=== PATIENT | male | born 1950 | race Caucasian/White ===

== ENCOUNTER 2020-02-25 09:03 | Inpatient (IN) | payer OTHER, MEDICAID, SELFPAY ==
[~2020-02-25] VITALS: Ht 172.7 cm; Wt 72.6 kg
[~2020-02-25 09:03] MED LIST: CEPH250C16 PO; GABA100C PO; HYDR-5092 PO; IV Rocephin IV
[2020-02-25 09:32] VITALS: BP 144/104
[2020-02-25] MEDS ORDERED: ACETAMINOPHEN EXTRA STRENGTH 500 MG TAB PO ONE (09:55)
[2020-02-25] MEDS ORDERED: ACETAMINOPHEN EXTRA STRENGTH 500 MG TAB ONE (09:59)
[2020-02-25] MEDS ORDERED: FURO-572 PO (10:03)
[2020-02-25] MEDS ORDERED: MELA3TER PO (10:03)
[2020-02-25] MEDS ORDERED: MULT-2171 PO (10:03)
[2020-02-25 10:30] LABS: BASOPHILS % (AUTO) 0.5 % (0.0-2.0); HEMATOCRIT 40.9 % (36-52); HEMOGLOBIN 13.1 g/dL (12.0-18.0); LYMPHOCYTES # (AUTO) 0.3 K/uL (2.0-11.5); LYMPHOCYTES % (AUTO) 6.2 % (20.5-51.1); MEAN CORPUSCULAR HEMOGLOBIN 31 pg (27-31); MEAN CORPUSCULAR HGB CONC 32 g/dL (33-37); MEAN CORPUSCULAR VOLUME 95.8 fL (80-94); MONOCYTES # (AUTO) 0.4 K/uL (0.8-1.0); MONOCYTES % (AUTO) 8.3 % (1.7-9.3); NEUTROPHILS # (AUTO) 4.6 K/uL (1.8-7.7); PLATELET COUNT (AUTO) 201 K/uL (140-450); RED BLOOD CELL COUNT(AUTO) 4.27 MIL/uL (4.20-6.10); WHITE BLOOD COUNT (AUTO) 5.4 K/uL (4.8-10.8)
[2020-02-25 10:40] LABS: ALBUMIN 2.9 g/dL (3.4-5.0); ANION GAP 9.4 (8-16); ASPARTATE AMINOTRANSFERASE 44 U/L (15-37); CARBON DIOXIDE 36.1 mmol/L (21-32); CHLORIDE 113 mmol/L (98-107); CREATININE 1.2 mg/dL (0.6-1.3); GLUCOSE 103 mg/dL (74-106); POTASSIUM 4.5 mmol/L (3.5-5.1); SODIUM SERUM 154 mmol/L (136-145); TOTAL BILIRUBIN 0.4 mg/dL (0.0-1.0); UREA NITROGEN, BLOOD 26 mg/dL (7-18)
[2020-02-25] MEDS ORDERED: NACL 0.9% 1,000 ML IV ONE (11:00)
[2020-02-25] MEDS ORDERED: cefTRIAXone 1,000 MG VIAL ONE (11:03)
[2020-02-25] MEDS ORDERED: guaiFENesin DM 200/20 MG-10 ML 10 ML UDC PO PRN (14:25)
[2020-02-25] MEDS ORDERED: DOCUSATE SODIUM 100 MG GELCAP PO PRN (14:25)
[2020-02-25] MEDS ORDERED: ONDANSETRON 4 MG/2 ML VIAL IM/IVP PRN (14:25)
[2020-02-25] MEDS ORDERED: ALBUTEROL HFA MDI 90 MCG/ACTUATION 8 GM INH PRN (14:30)
[2020-02-25] MEDS ORDERED: remdesivir CLINICAL MONITORING 1 EA MISC MC PRN (15:00)
[2020-02-25] MEDS: NACL 0.9% 1,000 ML IV SCH (15:20)
[2020-02-25 15:36] LABS: PROTHROMBIN TIME 10.6 secs (10.8-13.4)
[2020-02-25 15:56] LABS: CHOL/HDL RATIO 4.4 (1-4.5); FREE T4 (FREE THYROXINE) 0.88 ng/dL (0.76-1.46); MAGNESIUM 2.5 mg/dL (1.8-2.4); PHOSPHORUS 4.4 mg/dL (2.5-4.9); THYROID STIMULATING HORMONE 0.9 uIU/mL (0.34-3.74)
[2020-02-25] MEDS ORDERED: REMDESIVIR (EUA) 200 MG in NACL 0.9% 100 ML IV SCH (16:00)
[2020-02-25] MEDS: FUROSEMIDE 40 MG/4 ML VIAL IVP SCH (17:01)
[2020-02-25] MEDS: ATORVASTATIN 20 MG TAB PO SCH (17:03)
[2020-02-25] MEDS: HYDROcodone/APAP 7.5/325 MG 1 TAB PO PRN (17:19)
[2020-02-25 17:44] LABS: APPEARANCE,URINE CLEAR (CLEAR); BILIRUBIN,URINE NEGATIVE (NEGATIVE); BLOOD, URINE NEGATIVE (NEGATIVE); COLOR,URINE YELLOW (YELLOW); LEUKOCYTE ESTERASE ,URINE NEGATIVE (NEGATIVE); NITRITE, URINE NEGATIVE (NEGATIVE); UGLUCOSE NEGATIVE (NEGATIVE)
[2020-02-25 17:54] LABS: BARBITURATE, URINE NEGATIVE ng/ml (NEG <=200); BENZODIAZEPINE, URINE NEGATIVE ng/mL (NEG <=200); CANNABINOID, URINE NEGATIVE ng/mL (NEG <=50); COCAINE, URINE NEGATIVE ng/mL (NEG <=300); PHENCYCLIDINE SCREEN,URINE NEGATIVE ng/mL (NEG <=25)
[2020-02-25 17:55] LABS: OPIATE, URINE POSITIVE ng/mL (NEG <=2000)
[2020-02-25] MEDS: METOPROLOL 25 MG TAB PO SCH (22:02)
[2020-02-25] MEDS: ZOLPIDEM 5 MG TAB PO PRN (23:25)
[2020-02-26] MEDS: NACL 0.9% 1,000 ML IV SCH ×2 (03:09→12:02)
[2020-02-26] MEDS ORDERED: hydrALAZINE 20 MG/ML VIAL IVP SCH (03:50)
[2020-02-26] MEDS ORDERED: hydrALAZINE 20 MG/ML VIAL ONE (03:51)
[2020-02-26] MEDS: ACETAMINOPHEN 325 MG TAB PO PRN (07:59)
[2020-02-26] MEDS: FUROSEMIDE 40 MG/4 ML VIAL IVP SCH ×2 (08:13→17:45)
[2020-02-26] MEDS: ASCORBIC ACID 500 MG TAB PO SCH (08:14)
[2020-02-26] MEDS: ZINC SULF 220 MG CAP PO SCH (08:14)
[2020-02-26] MEDS: METOPROLOL 25 MG TAB PO SCH ×2 (08:15→20:48)
[2020-02-26] MEDS: PANTOPRAZOLE 40 MG TABEC PO SCH (08:15)
[2020-02-26] MEDS: lisinopriL 20 MG TAB PO SCH (08:15)
[2020-02-26] MEDS: FUROSEMIDE 20 MG TAB PO SCH (08:16)
[2020-02-26 08:27] LABS: BASOPHILS % (AUTO) 0.3 % (0.0-2.0); HEMATOCRIT 43.1 % (36-52); HEMOGLOBIN 13.9 g/dL (12.0-18.0); LYMPHOCYTES # (AUTO) 0.2 K/uL (2.0-11.5); LYMPHOCYTES % (AUTO) 3.6 % (20.5-51.1); MEAN CORPUSCULAR HEMOGLOBIN 30 pg (27-31); MEAN CORPUSCULAR HGB CONC 32 g/dL (33-37); MEAN CORPUSCULAR VOLUME 94.3 fL (80-94); MONOCYTES # (AUTO) 0.3 K/uL (0.8-1.0); MONOCYTES % (AUTO) 4.6 % (1.7-9.3); NEUTROPHILS # (AUTO) 5.6 K/uL (1.8-7.7); NEUTROPHILS % (AUTO) 91.5 % (42.2-75.2); PLATELET COUNT (AUTO) 196 K/uL (140-450); RED BLOOD CELL COUNT(AUTO) 4.57 MIL/uL (4.20-6.10); RED CELL DISTRIBUTION WIDTH 16.8 % (11.6-13.7); WHITE BLOOD COUNT (AUTO) 6.1 K/uL (4.8-10.8)
[2020-02-26] MEDS ORDERED: AZITHROMYCIN 250 MG TAB PO SCH (09:00)
[2020-02-26] MEDS ORDERED: lisinopriL 20 MG TAB PO SCH (09:00)
[2020-02-26] MEDS: COMMUNICATION ORDER MC SCH (09:05)
[2020-02-26 09:22] LABS: ALBUMIN 2.8 g/dL (3.4-5.0); ANION GAP 14.8 (8-16); ASPARTATE AMINOTRANSFERASE 53 U/L (15-37); CARBON DIOXIDE 31.1 mmol/L (21-32); CHLORIDE 103 mmol/L (98-107); CREATININE 1.1 mg/dL (0.6-1.3); GLUCOSE 120 mg/dL (74-106); POTASSIUM 3.9 mmol/L (3.5-5.1); SODIUM SERUM 145 mmol/L (136-145); TOTAL BILIRUBIN 0.4 mg/dL (0.0-1.0); UREA NITROGEN, BLOOD 27 mg/dL (7-18)
[2020-02-26 11:03] LABS: ALBUMIN 2.9 g/dL (3.4-5.0); BILIRUBIN,DIRECT 0.1 mg/dL (0.0-0.3); TOTAL BILIRUBIN 0.4 mg/dL (0.0-1.0)
[2020-02-26] MEDS: REMDESIVIR (EUA) 100 MG in NACL 0.9% 100 ML IV SCH (12:20)
[2020-02-26] MEDS: ATORVASTATIN 20 MG TAB PO SCH (17:46)
[2020-02-26] MEDS ORDERED: PIPERACILLIN/TAZOBACTAM 3.375 GM VIAL IV ONE (18:02)
[2020-02-26] MEDS: PIPERACILLIN/TAZOBACTAM 3.375 GM in DEXTROSE 5% 50 ML IV SCH (18:05)
[2020-02-26 18:52] VITALS: BP 140/90
[2020-02-26 20:00] VITALS: BP 115/68
[2020-02-27] VITALS: BP 112/80
[2020-02-27] MEDS ORDERED: PIPERACILLIN/TAZOBACTAM 3.375 GM VIAL IV ONE ×2 (00:22→06:41)
[2020-02-27] MEDS: PIPERACILLIN/TAZOBACTAM 3.375 GM in DEXTROSE 5% 50 ML IV SCH ×5 (00:25→23:43)
[2020-02-27 04:00] VITALS: BP 124/88
[2020-02-27] MEDS: NACL 0.9% 1,000 ML IV SCH ×4 (06:35→23:43)
[2020-02-27 08:00] VITALS: BP 122/90
[2020-02-27 08:19] LABS: BASOPHILS # (AUTO) 0.1 K/uL (0.00-0.22); HEMATOCRIT 43.7 % (36-52); HEMOGLOBIN 14.1 g/dL (12.0-18.0); LYMPHOCYTES # (AUTO) 0.3 K/uL (2.0-11.5); MEAN CORPUSCULAR HEMOGLOBIN 30 pg (27-31); MEAN CORPUSCULAR HGB CONC 32 g/dL (33-37); MONOCYTES # (AUTO) 0.5 K/uL (0.8-1.0); NEUTROPHILS # (AUTO) 4.8 K/uL (1.8-7.7); PLATELET COUNT (AUTO) 192 K/uL (140-450); RED BLOOD CELL COUNT(AUTO) 4.65 MIL/uL (4.20-6.10); RED CELL DISTRIBUTION WIDTH 16.4 % (11.6-13.7); WHITE BLOOD COUNT (AUTO) 5.7 K/uL (4.8-10.8)
[2020-02-27] MEDS: PANTOPRAZOLE 40 MG TABEC PO SCH (09:00)
[2020-02-27] MEDS: ASCORBIC ACID 500 MG TAB PO SCH (09:01)
[2020-02-27] MEDS: METOPROLOL 25 MG TAB PO SCH ×2 (09:01→21:04)
[2020-02-27] MEDS: ZINC SULF 220 MG CAP PO SCH (09:01)
[2020-02-27] MEDS: lisinopriL 20 MG TAB PO SCH (09:02)
[2020-02-27] MEDS: FUROSEMIDE 20 MG TAB PO SCH (09:02)
[2020-02-27] MEDS: FUROSEMIDE 40 MG/4 ML VIAL IVP SCH ×2 (09:02→16:55)
[2020-02-27 09:19] LABS: ALBUMIN 2.4 g/dL (3.4-5.0); ANION GAP 11.5 (8-16); ASPARTATE AMINOTRANSFERASE 40 U/L (15-37); CARBON DIOXIDE 35.6 mmol/L (21-32); CHLORIDE 105 mmol/L (98-107); CREATININE 1.2 mg/dL (0.6-1.3); GLUCOSE 115 mg/dL (74-106); POTASSIUM 3.1 mmol/L (3.5-5.1); SODIUM SERUM 149 mmol/L (136-145); TOTAL BILIRUBIN 0.5 mg/dL (0.0-1.0); UREA NITROGEN, BLOOD 29 mg/dL (7-18)
[2020-02-27 09:22] LABS: ALBUMIN 2.4 g/dL (3.4-5.0); BILIRUBIN,DIRECT 0.2 mg/dL (0.0-0.3); TOTAL BILIRUBIN 0.5 mg/dL (0.0-1.0)
[2020-02-27] MEDS: COMMUNICATION ORDER MC SCH (09:28)
[2020-02-27] MEDS: HYDROcodone/APAP 7.5/325 MG 1 TAB PO PRN ×2 (11:31→21:04)
[2020-02-27] MEDS: REMDESIVIR (EUA) 100 MG in NACL 0.9% 100 ML IV SCH (11:32)
[2020-02-27 12:00] VITALS: BP 120/88
[2020-02-27] MEDS: POTASSIUM CHLORIDE 10 MEQ TABER PO PRN (15:06)
[2020-02-27 16:00] VITALS: BP 133/93
[2020-02-27] MEDS: ATORVASTATIN 20 MG TAB PO SCH (16:55)
[2020-02-27 20:00] VITALS: BP 115/89
[2020-02-28] VITALS: BP 136/94
[2020-02-28 04:00] VITALS: BP 143/97
[2020-02-28] MEDS: PIPERACILLIN/TAZOBACTAM 3.375 GM in DEXTROSE 5% 50 ML IV SCH ×4 (05:43→23:38)
[2020-02-28 08:00] VITALS: BP 139/98
[2020-02-28 08:36] LABS: BASOPHILS % (AUTO) 0.1 % (0.0-2.0); EOSINOPHILS % (AUTO) 0.1 % (0.0-4.0); HEMATOCRIT 41.3 % (36-52); HEMOGLOBIN 13.4 g/dL (12.0-18.0); LYMPHOCYTES # (AUTO) 0.5 K/uL (2.0-11.5); LYMPHOCYTES % (AUTO) 9.5 % (20.5-51.1); MEAN CORPUSCULAR HEMOGLOBIN 30 pg (27-31); MEAN CORPUSCULAR HGB CONC 32 g/dL (33-37); MEAN CORPUSCULAR VOLUME 93.6 fL (80-94); MONOCYTES # (AUTO) 0.4 K/uL (0.8-1.0); NEUTROPHILS # (AUTO) 4.4 K/uL (1.8-7.7); NEUTROPHILS % (AUTO) 82.3 % (42.2-75.2); PLATELET COUNT (AUTO) 182 K/uL (140-450); RED BLOOD CELL COUNT(AUTO) 4.41 MIL/uL (4.20-6.10); RED CELL DISTRIBUTION WIDTH 16.4 % (11.6-13.7); WHITE BLOOD COUNT (AUTO) 5.4 K/uL (4.8-10.8)
[2020-02-28 08:55] LABS: ALBUMIN 2.4 g/dL (3.4-5.0); ANION GAP 8.3 (8-16); ASPARTATE AMINOTRANSFERASE 33 U/L (15-37); CARBON DIOXIDE 37.6 mmol/L (21-32); CHLORIDE 104 mmol/L (98-107); CREATININE 1.2 mg/dL (0.6-1.3); GLUCOSE 104 mg/dL (74-106); SODIUM SERUM 147 mmol/L (136-145); TOTAL BILIRUBIN 0.5 mg/dL (0.0-1.0); UREA NITROGEN, BLOOD 25 mg/dL (7-18)
[2020-02-28] MEDS: COMMUNICATION ORDER MC SCH (09:00)
[2020-02-28 09:01] LABS: POTASSIUM 2.9 mmol/L (3.5-5.1)
[2020-02-28] MEDS: ASCORBIC ACID 500 MG TAB PO SCH (10:26)
[2020-02-28] MEDS: PANTOPRAZOLE 40 MG TABEC PO SCH (10:27)
[2020-02-28] MEDS: POTASSIUM CHLORIDE 10 MEQ TABER PO PRN (10:27)
[2020-02-28] MEDS: lisinopriL 20 MG TAB PO SCH (10:28)
[2020-02-28] MEDS: ZINC SULF 220 MG CAP PO SCH (10:28)
[2020-02-28] MEDS: METOPROLOL 25 MG TAB PO SCH ×2 (10:29→21:32)
[2020-02-28] MEDS: FUROSEMIDE 40 MG/4 ML VIAL IVP SCH ×2 (10:29→17:52)
[2020-02-28] MEDS: FUROSEMIDE 20 MG TAB PO SCH (10:29)
[2020-02-28 12:00] VITALS: BP 122/93
[2020-02-28] MEDS: NACL 0.9% 1,000 ML IV SCH (13:04)
[2020-02-28] MEDS: REMDESIVIR (EUA) 100 MG in NACL 0.9% 100 ML IV SCH (13:52)
[2020-02-28 16:00] VITALS: BP 115/85
[2020-02-28] MEDS: ATORVASTATIN 20 MG TAB PO SCH (17:48)
[2020-02-28 20:00] VITALS: BP 136/64
[2020-02-29] VITALS: BP 130/99
[2020-02-29] MEDS: NACL 0.9% 1,000 ML IV SCH ×3 (01:22→15:40)
[2020-02-29] MEDS: HYDROcodone/APAP 7.5/325 MG 1 TAB PO PRN ×2 (01:30→21:39)
[2020-02-29 04:00] VITALS: BP 136/91
[2020-02-29] MEDS: PIPERACILLIN/TAZOBACTAM 3.375 GM in DEXTROSE 5% 50 ML IV SCH ×3 (06:09→17:57)
[2020-02-29 08:00] VITALS: BP 148/96
[2020-02-29 08:35] LABS: BASOPHILS % (AUTO) 0.1 % (0.0-2.0); HEMATOCRIT 42.7 % (36-52); LYMPHOCYTES # (AUTO) 0.6 K/uL (2.0-11.5); LYMPHOCYTES % (AUTO) 13.3 % (20.5-51.1); MEAN CORPUSCULAR HEMOGLOBIN 31 pg (27-31); MEAN CORPUSCULAR HGB CONC 33 g/dL (33-37); MEAN CORPUSCULAR VOLUME 93.2 fL (80-94); MONOCYTES # (AUTO) 0.4 K/uL (0.8-1.0); MONOCYTES % (AUTO) 9.5 % (1.7-9.3); NEUTROPHILS # (AUTO) 3.3 K/uL (1.8-7.7); NEUTROPHILS % (AUTO) 77.1 % (42.2-75.2); PLATELET COUNT (AUTO) 178 K/uL (140-450); RED BLOOD CELL COUNT(AUTO) 4.58 MIL/uL (4.20-6.10); RED CELL DISTRIBUTION WIDTH 16.7 % (11.6-13.7); WHITE BLOOD COUNT (AUTO) 4.3 K/uL (4.8-10.8)
[2020-02-29] MEDS: ASCORBIC ACID 500 MG TAB PO SCH (09:57)
[2020-02-29] MEDS: ZINC SULF 220 MG CAP PO SCH (09:57)
[2020-02-29] MEDS: lisinopriL 20 MG TAB PO SCH (09:57)
[2020-02-29] MEDS: PANTOPRAZOLE 40 MG TABEC PO SCH (09:58)
[2020-02-29] MEDS: FUROSEMIDE 20 MG TAB PO SCH (09:58)
[2020-02-29] MEDS: METOPROLOL 25 MG TAB PO SCH ×2 (09:58→20:42)
[2020-02-29] MEDS: FUROSEMIDE 40 MG/4 ML VIAL IVP SCH ×2 (09:59→17:55)
[2020-02-29] MEDS: COMMUNICATION ORDER MC SCH (10:01)
[2020-02-29 11:19] LABS: PHOSPHORUS 2.8 mg/dL (2.5-4.9)
[2020-02-29 12:00] VITALS: BP 131/62
[2020-02-29] MEDS: REMDESIVIR (EUA) 100 MG in NACL 0.9% 100 ML IV SCH (15:40)
[2020-02-29 16:00] VITALS: BP 114/81
[2020-02-29 16:55] LABS: ALBUMIN 2.7 g/dL (3.4-5.0); ANION GAP 11.2 (8-16); ASPARTATE AMINOTRANSFERASE 53 U/L (15-37); CARBON DIOXIDE 33.7 mmol/L (21-32); CHLORIDE 103 mmol/L (98-107); CREATININE 1.1 mg/dL (0.6-1.3); GLUCOSE 94 mg/dL (74-106); SODIUM SERUM 145 mmol/L (136-145); TOTAL BILIRUBIN 0.6 mg/dL (0.0-1.0); UREA NITROGEN, BLOOD 22 mg/dL (7-18)
[2020-02-29 17:06] LABS: POTASSIUM 2.9 mmol/L (3.5-5.1)
[2020-02-29] MEDS: POTASSIUM CHLORIDE 10 MEQ TABER PO PRN (17:56)
[2020-02-29] MEDS: ATORVASTATIN 20 MG TAB PO SCH (17:57)
[2020-02-29 20:00] VITALS: BP 109/81
[2020-03-01] VITALS: BP 133/91
[2020-03-01] MEDS: PIPERACILLIN/TAZOBACTAM 3.375 GM in DEXTROSE 5% 50 ML IV SCH ×4 (02:06→17:26)
[2020-03-01] MEDS: HYDROcodone/APAP 7.5/325 MG 1 TAB PO PRN ×2 (02:17→20:16)
[2020-03-01 04:00] VITALS: BP 144/100
[2020-03-01] MEDS: NACL 0.9% 1,000 ML IV SCH ×2 (06:49→17:24)
[2020-03-01 07:27] LABS: BASOPHILS % (AUTO) 0.1 % (0.0-2.0); EOSINOPHILS % (AUTO) 0.6 % (0.0-4.0); HEMATOCRIT 41.5 % (36-52); HEMOGLOBIN 13.4 g/dL (12.0-18.0); LYMPHOCYTES # (AUTO) 0.7 K/uL (2.0-11.5); LYMPHOCYTES % (AUTO) 14.2 % (20.5-51.1); MEAN CORPUSCULAR HEMOGLOBIN 30 pg (27-31); MEAN CORPUSCULAR HGB CONC 32 g/dL (33-37); MONOCYTES # (AUTO) 0.4 K/uL (0.8-1.0); MONOCYTES % (AUTO) 9.3 % (1.7-9.3); NEUTROPHILS # (AUTO) 3.6 K/uL (1.8-7.7); NEUTROPHILS % (AUTO) 75.8 % (42.2-75.2); PLATELET COUNT (AUTO) 168 K/uL (140-450); RED BLOOD CELL COUNT(AUTO) 4.46 MIL/uL (4.20-6.10); RED CELL DISTRIBUTION WIDTH 16.5 % (11.6-13.7); WHITE BLOOD COUNT (AUTO) 4.7 K/uL (4.8-10.8)
[2020-03-01 08:00] VITALS: BP 135/94
[2020-03-01 08:30] LABS: MAGNESIUM 1.6 mg/dL (1.8-2.4); PHOSPHORUS 3.2 mg/dL (2.5-4.9)
[2020-03-01] MEDS: ZINC SULF 220 MG CAP PO SCH (09:14)
[2020-03-01] MEDS: ASCORBIC ACID 500 MG TAB PO SCH (09:14)
[2020-03-01] MEDS: FUROSEMIDE 20 MG TAB PO SCH (09:14)
[2020-03-01] MEDS: METOPROLOL 25 MG TAB PO SCH ×2 (09:15→20:16)
[2020-03-01] MEDS: PANTOPRAZOLE 40 MG TABEC PO SCH (09:15)
[2020-03-01] MEDS: lisinopriL 20 MG TAB PO SCH (09:15)
[2020-03-01] MEDS: APIXABAN 2.5 MG TAB PO SCH ×2 (09:20→20:17)
[2020-03-01] MEDS: FUROSEMIDE 40 MG/4 ML VIAL IVP SCH (09:28)
[2020-03-01 12:00] VITALS: BP 134/97
[2020-03-01] MEDS ORDERED: MAG SULF 2000 MG/WATER PREMIX 50 ML IV SCH (13:00)
[2020-03-01 16:00] VITALS: BP 135/91
[2020-03-01 17:13] LABS: ALBUMIN 2.8 g/dL (3.4-5.0); ANION GAP 8.5 (8-16); ASPARTATE AMINOTRANSFERASE 49 U/L (15-37); CARBON DIOXIDE 37.6 mmol/L (21-32); CHLORIDE 100 mmol/L (98-107); CREATININE 1.2 mg/dL (0.6-1.3); GLUCOSE 82 mg/dL (74-106); POTASSIUM 3.1 mmol/L (3.5-5.1); SODIUM SERUM 143 mmol/L (136-145); TOTAL BILIRUBIN 0.7 mg/dL (0.0-1.0); UREA NITROGEN, BLOOD 23 mg/dL (7-18)
[2020-03-01] MEDS: ATORVASTATIN 20 MG TAB PO SCH (17:23)
[2020-03-01] MEDS: POTASSIUM CHLORIDE 10 MEQ TABER PO PRN (19:19)
[2020-03-01 20:00] VITALS: BP 124/96
[2020-03-02] VITALS: BP_SYST 124; BP_SYST 136; BP_DIAS 90; BP_DIAS 96
[2020-03-02] MEDS: PIPERACILLIN/TAZOBACTAM 3.375 GM in DEXTROSE 5% 50 ML IV SCH ×5 (00:07→23:21)
[2020-03-02] MEDS: ZOLPIDEM 5 MG TAB PO PRN ×2 (00:07→23:29)
[2020-03-02] MEDS: NACL 0.9% 1,000 ML IV SCH ×3 (02:43→23:19)
[2020-03-02 08:00] VITALS: BP 149/78
[2020-03-02 09:08] LABS: BASOPHILS # (AUTO) 0.1 K/uL (0.00-0.22); BASOPHILS % (AUTO) 0.8 % (0.0-2.0); EOSINOPHILS % (AUTO) 0.3 % (0.0-4.0); HEMATOCRIT 43.8 % (36-52); HEMOGLOBIN 14.5 g/dL (12.0-18.0); LYMPHOCYTES # (AUTO) 0.8 K/uL (2.0-11.5); LYMPHOCYTES % (AUTO) 10.7 % (20.5-51.1); MEAN CORPUSCULAR HEMOGLOBIN 30 pg (27-31); MEAN CORPUSCULAR HGB CONC 33 g/dL (33-37); MEAN CORPUSCULAR VOLUME 91.7 fL (80-94); MONOCYTES # (AUTO) 0.6 K/uL (0.8-1.0); MONOCYTES % (AUTO) 8.7 % (1.7-9.3); NEUTROPHILS # (AUTO) 5.7 K/uL (1.8-7.7); NEUTROPHILS % (AUTO) 79.5 % (42.2-75.2); PLATELET COUNT (AUTO) 178 K/uL (140-450); RED BLOOD CELL COUNT(AUTO) 4.78 MIL/uL (4.20-6.10); RED CELL DISTRIBUTION WIDTH 16.2 % (11.6-13.7); WHITE BLOOD COUNT (AUTO) 7.1 K/uL (4.8-10.8)
[2020-03-02] MEDS: ZINC SULF 220 MG CAP PO SCH (09:35)
[2020-03-02] MEDS: PANTOPRAZOLE 40 MG TABEC PO SCH (09:35)
[2020-03-02] MEDS: ASCORBIC ACID 500 MG TAB PO SCH (09:35)
[2020-03-02] MEDS: lisinopriL 20 MG TAB PO SCH (09:36)
[2020-03-02] MEDS: FUROSEMIDE 20 MG TAB PO SCH (09:36)
[2020-03-02] MEDS: METOPROLOL 25 MG TAB PO SCH ×2 (09:37→21:17)
[2020-03-02] MEDS: APIXABAN 2.5 MG TAB PO SCH ×2 (09:38→21:00)
[2020-03-02 10:14] LABS: ASPARTATE AMINOTRANSFERASE 47 U/L (15-37); CARBON DIOXIDE 34.5 mmol/L (21-32); CHLORIDE 105 mmol/L (98-107); CREATININE 1.2 mg/dL (0.6-1.3); GLUCOSE 96 mg/dL (74-106); LACTATE DEHYDROGENASE 208 U/L (85-227); MAGNESIUM 2.6 mg/dL (1.8-2.4); PHOSPHORUS 2.9 mg/dL (2.5-4.9); POTASSIUM 3.5 mmol/L (3.5-5.1); SODIUM SERUM 147 mmol/L (136-145); TOTAL BILIRUBIN 0.7 mg/dL (0.0-1.0); UREA NITROGEN, BLOOD 28 mg/dL (7-18)
[2020-03-02 12:00] VITALS: BP 126/85
[2020-03-02 16:00] VITALS: BP 125/90
[2020-03-02] MEDS: ATORVASTATIN 20 MG TAB PO SCH (17:35)
[2020-03-02 20:00] VITALS: BP 149/97
[2020-03-03] VITALS: BP 148/96
[2020-03-03 04:00] VITALS: BP 145/105
[2020-03-03] MEDS: PIPERACILLIN/TAZOBACTAM 3.375 GM in DEXTROSE 5% 50 ML IV SCH ×3 (05:10→17:41)
[2020-03-03 06:43] LABS: BASOPHILS % (AUTO) 0.1 % (0.0-2.0); EOSINOPHILS # (AUTO) 0.1 K/uL (0-0.4); EOSINOPHILS % (AUTO) 0.6 % (0.0-4.0); HEMATOCRIT 41.7 % (36-52); HEMOGLOBIN 13.9 g/dL (12.0-18.0); LYMPHOCYTES # (AUTO) 0.6 K/uL (2.0-11.5); LYMPHOCYTES % (AUTO) 7.8 % (20.5-51.1); MEAN CORPUSCULAR HEMOGLOBIN 31 pg (27-31); MEAN CORPUSCULAR HGB CONC 33 g/dL (33-37); MEAN CORPUSCULAR VOLUME 92.6 fL (80-94); MONOCYTES # (AUTO) 0.5 K/uL (0.8-1.0); MONOCYTES % (AUTO) 5.7 % (1.7-9.3); NEUTROPHILS # (AUTO) 7.1 K/uL (1.8-7.7); NEUTROPHILS % (AUTO) 85.8 % (42.2-75.2); PLATELET COUNT (AUTO) 171 K/uL (140-450); RED BLOOD CELL COUNT(AUTO) 4.51 MIL/uL (4.20-6.10); RED CELL DISTRIBUTION WIDTH 16.4 % (11.6-13.7); WHITE BLOOD COUNT (AUTO) 8.3 K/uL (4.8-10.8)
[2020-03-03 08:02] LABS: ANION GAP 9.9 (8-16); CARBON DIOXIDE 33.8 mmol/L (21-32); CHLORIDE 105 mmol/L (98-107); CREATININE 1.2 mg/dL (0.6-1.3); GLUCOSE 97 mg/dL (74-106); POTASSIUM 3.7 mmol/L (3.5-5.1); SODIUM SERUM 145 mmol/L (136-145); UREA NITROGEN, BLOOD 27 mg/dL (7-18)
[2020-03-03] MEDS: NACL 0.9% 1,000 ML IV SCH ×2 (08:43→21:30)
[2020-03-03] MEDS: PANTOPRAZOLE 40 MG TABEC PO SCH (09:08)
[2020-03-03] MEDS: lisinopriL 20 MG TAB PO SCH (09:08)
[2020-03-03] MEDS: ZINC SULF 220 MG CAP PO SCH (09:08)
[2020-03-03] MEDS: APIXABAN 2.5 MG TAB PO SCH ×2 (09:09→22:10)
[2020-03-03] MEDS: ASCORBIC ACID 500 MG TAB PO SCH (09:10)
[2020-03-03] MEDS: FUROSEMIDE 20 MG TAB PO SCH (09:10)
[2020-03-03] MEDS: METOPROLOL 25 MG TAB PO SCH ×2 (09:17→22:03)
[2020-03-03 10:01] VITALS: BP 146/116
[2020-03-03] MEDS ORDERED: FURO-572 PO (10:47)
[2020-03-03] MEDS ORDERED: AMOX-999 PO (10:47)
[2020-03-03] MEDS ORDERED: ASPI-1205 PO (10:47)
[2020-03-03] MEDS ORDERED: DEC1 PO (10:47)
[2020-03-03] MEDS ORDERED: LISI-420 PO (11:40)
[2020-03-03] MEDS ORDERED: METO25TA PO (11:40)
[2020-03-03] MEDS: HYDROcodone/APAP 7.5/325 MG 1 TAB PO PRN ×2 (15:37→22:02)
[2020-03-03] MEDS: ATORVASTATIN 20 MG TAB PO SCH (17:41)
[2020-03-03 20:00] VITALS: BP 132/89
[2020-03-04] MEDS: PIPERACILLIN/TAZOBACTAM 3.375 GM in DEXTROSE 5% 50 ML IV SCH ×4 (00:38→18:01)
[2020-03-04 00:48] VITALS: BP 132/89
[2020-03-04 04:00] VITALS: BP 131/100
[2020-03-04] MEDS: NACL 0.9% 1,000 ML IV SCH ×3 (04:43→17:03)
[2020-03-04 08:00] VITALS: BP 129/93
[2020-03-04 08:19] LABS: BASOPHILS % (AUTO) 0.1 % (0.0-2.0); EOSINOPHILS # (AUTO) 0.1 K/uL (0-0.4); HEMATOCRIT 40.5 % (36-52); HEMOGLOBIN 13.3 g/dL (12.0-18.0); LYMPHOCYTES # (AUTO) 0.6 K/uL (2.0-11.5); LYMPHOCYTES % (AUTO) 6.3 % (20.5-51.1); MEAN CORPUSCULAR HEMOGLOBIN 30 pg (27-31); MEAN CORPUSCULAR HGB CONC 33 g/dL (33-37); MEAN CORPUSCULAR VOLUME 92.1 fL (80-94); MONOCYTES # (AUTO) 0.5 K/uL (0.8-1.0); NEUTROPHILS # (AUTO) 8.7 K/uL (1.8-7.7); NEUTROPHILS % (AUTO) 87.6 % (42.2-75.2); PLATELET COUNT (AUTO) 169 K/uL (140-450); RED CELL DISTRIBUTION WIDTH 16.5 % (11.6-13.7); WHITE BLOOD COUNT (AUTO) 9.9 K/uL (4.8-10.8)
[2020-03-04 09:21] LABS: CARBON DIOXIDE 32.6 mmol/L (21-32); CHLORIDE 105 mmol/L (98-107); CREATININE 0.9 mg/dL (0.6-1.3); GLUCOSE 88 mg/dL (74-106); POTASSIUM 3.6 mmol/L (3.5-5.1); SODIUM SERUM 144 mmol/L (136-145); UREA NITROGEN, BLOOD 29 mg/dL (7-18)
[2020-03-04] MEDS: APIXABAN 2.5 MG TAB PO SCH ×2 (09:50→21:36)
[2020-03-04] MEDS: FUROSEMIDE 20 MG TAB PO SCH (09:51)
[2020-03-04] MEDS: ASCORBIC ACID 500 MG TAB PO SCH (09:51)
[2020-03-04] MEDS: ZINC SULF 220 MG CAP PO SCH (09:51)
[2020-03-04] MEDS: METOPROLOL 25 MG TAB PO SCH ×2 (09:51→21:37)
[2020-03-04] MEDS: lisinopriL 20 MG TAB PO SCH (09:52)
[2020-03-04] MEDS: PANTOPRAZOLE 40 MG TABEC PO SCH (09:52)
[2020-03-04 12:00] VITALS: BP 125/94
[2020-03-04 16:00] VITALS: BP 138/96
[2020-03-04] MEDS: ATORVASTATIN 20 MG TAB PO SCH (18:01)
[2020-03-04 20:00] VITALS: BP 139/99
[2020-03-04] MEDS ORDERED: Z-GUARD PASTE TP ONE (21:06)
[2020-03-04] MEDS ORDERED: Z-GUARD PASTE TP PRN (21:25)
[2020-03-04] MEDS: HYDROcodone/APAP 7.5/325 MG 1 TAB PO PRN (22:20)
[2020-03-05] VITALS: BP 140/98
[2020-03-05] MEDS: Z-GUARD PASTE TP SCH ×2 (01:00→15:28)
[2020-03-05 04:00] VITALS: BP 136/94
[2020-03-05] MEDS: PIPERACILLIN/TAZOBACTAM 3.375 GM in DEXTROSE 5% 50 ML IV SCH ×3 (04:11→18:09)
[2020-03-05 08:00] VITALS: BP 146/119
[2020-03-05] MEDS: lisinopriL 20 MG TAB PO SCH (09:28)
[2020-03-05] MEDS: APIXABAN 2.5 MG TAB PO SCH ×2 (09:28→22:00)
[2020-03-05] MEDS: FUROSEMIDE 20 MG TAB PO SCH (09:29)
[2020-03-05] MEDS: PANTOPRAZOLE 40 MG TABEC PO SCH (09:29)
[2020-03-05] MEDS: METOPROLOL 25 MG TAB PO SCH ×2 (09:29→22:00)
[2020-03-05] MEDS: ZINC SULF 220 MG CAP PO SCH (09:30)
[2020-03-05] MEDS: ASCORBIC ACID 500 MG TAB PO SCH (09:30)
[2020-03-05 09:31] LABS: ANION GAP 10.2 (8-16); CARBON DIOXIDE 33.6 mmol/L (21-32); CHLORIDE 106 mmol/L (98-107); CREATININE 0.9 mg/dL (0.6-1.3); GLUCOSE 88 mg/dL (74-106); POTASSIUM 3.8 mmol/L (3.5-5.1); SODIUM SERUM 146 mmol/L (136-145); UREA NITROGEN, BLOOD 27 mg/dL (7-18)
[2020-03-05 09:38] LABS: BASOPHILS % (AUTO) 0.2 % (0.0-2.0); EOSINOPHILS # (AUTO) 0.1 K/uL (0-0.4); EOSINOPHILS % (AUTO) 0.6 % (0.0-4.0); HEMATOCRIT 39.7 % (36-52); HEMOGLOBIN 12.9 g/dL (12.0-18.0); LYMPHOCYTES # (AUTO) 0.5 K/uL (2.0-11.5); LYMPHOCYTES % (AUTO) 5.9 % (20.5-51.1); MEAN CORPUSCULAR HEMOGLOBIN 30 pg (27-31); MEAN CORPUSCULAR HGB CONC 33 g/dL (33-37); MONOCYTES # (AUTO) 0.4 K/uL (0.8-1.0); NEUTROPHILS # (AUTO) 7.9 K/uL (1.8-7.7); NEUTROPHILS % (AUTO) 88.3 % (42.2-75.2); PLATELET COUNT (AUTO) 149 K/uL (140-450); RED BLOOD CELL COUNT(AUTO) 4.27 MIL/uL (4.20-6.10); RED CELL DISTRIBUTION WIDTH 16.9 % (11.6-13.7)
[2020-03-05] MEDS: NACL 0.9% 1,000 ML IV SCH (10:43)
[2020-03-05 12:00] VITALS: BP 132/86
[2020-03-05] MEDS: HYDROcodone/APAP 7.5/325 MG 1 TAB PO PRN (12:32)
[2020-03-05 16:00] VITALS: BP 126/97
[2020-03-05] MEDS: ATORVASTATIN 20 MG TAB PO SCH (18:06)
[2020-03-05 20:00] VITALS: BP 126/88
[2020-03-06] VITALS: BP 133/98
[2020-03-06] MEDS: PIPERACILLIN/TAZOBACTAM 3.375 GM in DEXTROSE 5% 50 ML IV SCH ×3 (00:30→14:00)
[2020-03-06] MEDS: Z-GUARD PASTE TP SCH ×2 (01:34→14:00)
[2020-03-06] MEDS: ACETAMINOPHEN 325 MG TAB PO PRN (01:35)
[2020-03-06 04:00] VITALS: BP 114/78
[2020-03-06 06:59] LABS: BASOPHILS % (AUTO) 0.3 % (0.0-2.0); EOSINOPHILS # (AUTO) 0.1 K/uL (0-0.4); EOSINOPHILS % (AUTO) 0.9 % (0.0-4.0); HEMOGLOBIN 13.2 g/dL (12.0-18.0); LYMPHOCYTES # (AUTO) 0.4 K/uL (2.0-11.5); LYMPHOCYTES % (AUTO) 4.1 % (20.5-51.1); MEAN CORPUSCULAR HEMOGLOBIN 30 pg (27-31); MEAN CORPUSCULAR HGB CONC 33 g/dL (33-37); MEAN CORPUSCULAR VOLUME 92.6 fL (80-94); MONOCYTES # (AUTO) 0.6 K/uL (0.8-1.0); MONOCYTES % (AUTO) 6.6 % (1.7-9.3); NEUTROPHILS # (AUTO) 8.3 K/uL (1.8-7.7); NEUTROPHILS % (AUTO) 88.1 % (42.2-75.2); PLATELET COUNT (AUTO) 140 K/uL (140-450); RED BLOOD CELL COUNT(AUTO) 4.32 MIL/uL (4.20-6.10); RED CELL DISTRIBUTION WIDTH 16.7 % (11.6-13.7); WHITE BLOOD COUNT (AUTO) 9.4 K/uL (4.8-10.8)
[2020-03-06 07:28] LABS: ANION GAP 11.3 (8-16); CARBON DIOXIDE 32.5 mmol/L (21-32); CHLORIDE 103 mmol/L (98-107); CREATININE 0.9 mg/dL (0.6-1.3); GLUCOSE 98 mg/dL (74-106); POTASSIUM 3.8 mmol/L (3.5-5.1); SODIUM SERUM 143 mmol/L (136-145); UREA NITROGEN, BLOOD 26 mg/dL (7-18)
[2020-03-06 08:00] VITALS: BP 150/107
[2020-03-06] MEDS: FUROSEMIDE 20 MG TAB PO SCH (09:32)
[2020-03-06] MEDS: lisinopriL 20 MG TAB PO SCH (09:33)
[2020-03-06] MEDS: METOPROLOL 25 MG TAB PO SCH (09:33)
[2020-03-06] MEDS: PANTOPRAZOLE 40 MG TABEC PO SCH (09:34)
[2020-03-06] MEDS: ASCORBIC ACID 500 MG TAB PO SCH (09:34)
[2020-03-06] MEDS: ZINC SULF 220 MG CAP PO SCH (09:34)
[2020-03-06] MEDS: APIXABAN 2.5 MG TAB PO SCH (09:35)
[2020-03-06 12:00] VITALS: BP 151/95
== END 2020-03-06 16:25 | DRG 871 ==
LOC: MED 09:03 → MTU 11:57
PROVIDERS: ADMIT Family Medicine; ATTEND Family Medicine
PROC: XW033E5 Introduction of Remdesivir Anti-infective into Peripheral Vein, Percutaneous Approach, New Technology Group 5 (ICD-10-PCS; 2020-02-25)
PROC: XW13325 Transfusion of Convalescent Plasma (Nonautologous) into Peripheral Vein, Percutaneous Approach, New Technology Group 5 (ICD-10-PCS; principal; 2020-02-29)
DX: A41.9 Sepsis, unspecified organism (principal); U07.1 COVID-19; J12.82 Pneumonia due to coronavirus disease 2019; E43 Unspecified severe protein-calorie malnutrition; J96.01 Acute respiratory failure with hypoxia; I21.A1 Myocardial infarction type 2; I50.43 Acute on chronic combined systolic (congestive) and diastolic (congestive) heart failure; I69.351 Hemiplegia and hemiparesis following cerebral infarction affecting right dominant side; E87.0 Hyperosmolality and hypernatremia; D68.59 Other primary thrombophilia; I11.0 Hypertensive heart disease with heart failure; E86.0 Dehydration; M54.9 Dorsalgia, unspecified; I48.91 Unspecified atrial fibrillation; E87.6 Hypokalemia; E83.42 Hypomagnesemia; Z68.24 Body mass index [BMI] 24.0-24.9, adult
CPT/HCPCS: 36415; 51702; 71045; 80048; 80053; 80076; 80305; 81003; 82150; 82550; 83036; 83605; 83615; 83690; 83735; 83880; 84100; 84436; 84439; 84443; 84479; 84484; 85025; 85379; 85610; 85651; 85730; 86140; 86900; 86901; 87040; 87081; 87086; 93005; 96365; 97110; 97112; 97116; 97161-GP; 97530; 99285; J0360; J0696; J1644; J1940; J2543; J3475; J3535; J7030; J7060; P9017

== ENCOUNTER 2020-03-30 12:32 | Inpatient (IN) | payer OTHER, MEDICAID, SELFPAY ==
[~2020-03-30] VITALS: Ht 170.2 cm; Wt 66.7 kg
[~2020-03-30 12:32] MED LIST changes: +AMOX-999 PO; +ASPI-1205 PO; -CEPH250C16 PO; +DEC1 PO; +FURO-572 PO; -GABA100C PO; -HYDR-5092 PO; -IV Rocephin IV; +LISI-487 PO; +MELA3TER PO; +METO25TA PO; +MULT-2171 PO
--- NOTE | 2020-03-30 12:33 | NUR ---
Patient BIBA ALS from [facility], transferred to bed 10. RN evaluating the patient at bedside.
[2020-03-30 12:44] VITALS: BP 149/126
--- NOTE | 2020-03-30 12:50 | NUR ---
70 Y/O MALE BIBA FROM [facility] [place]. PER MEDIC PT O2 SATS BELOW 70% ON 2L NC, PLACED ON 15L AT [facility] WITH O2 SAT AT 98%. ON ARRIVAL PT ON 3L NC BY MEDIC WITH O2 SAT IN 70S% WITH IV TO LEFT FA 20G SL WITH EKG SHOWING AFIB RYTHYM. PT STATES SOB X 1WEEK. PT LUNGS CLEAR BILATERAL THROUGHOUT. CAP REFILL <3 SECONDS. PT 84% ON RA, 91 6L N/C, PT PUT ON NONREBREATHER 12L O2 SAT 100%. CAP REFILL <3 SECONDS. PT IS A&0 X3, DOES NOT KNOW WHERE HE IS.PT REORIENTED. EVEN AND UNLABORED RESPIRATIONS. PT LAYING IN BED, BED IN LOWEST POSITION, BRAKES LOCKED X2 SIDE RAILS UP. PT IS FALL RISK. PMH: RIGHT CVA, DEMENTIA, DM, HTN NKA
[2020-03-30 13:34] LABS: BASOPHILS # (AUTO) 0.1 K/uL (0.00-0.22); BASOPHILS % (AUTO) 1.1 % (0.0-2.0); EOSINOPHILS # (AUTO) 0.1 K/uL (0-0.4); EOSINOPHILS % (AUTO) 1.5 % (0.0-4.0); HEMATOCRIT 39.9 % (36-52); HEMOGLOBIN 12.9 g/dL (12.0-18.0); LYMPHOCYTES # (AUTO) 0.6 K/uL (2.0-11.5); LYMPHOCYTES % (AUTO) 9.5 % (20.5-51.1); MEAN CORPUSCULAR HEMOGLOBIN 31 pg (27-31); MEAN CORPUSCULAR HGB CONC 32 g/dL (33-37); MEAN CORPUSCULAR VOLUME 95.1 fL (80-94); MONOCYTES # (AUTO) 0.5 K/uL (0.8-1.0); MONOCYTES % (AUTO) 7.8 % (1.7-9.3); NEUTROPHILS # (AUTO) 4.9 K/uL (1.8-7.7); NEUTROPHILS % (AUTO) 80.1 % (42.2-75.2); PLATELET COUNT (AUTO) 182 K/uL (140-450); RED BLOOD CELL COUNT(AUTO) 4.19 MIL/uL (4.20-6.10); RED CELL DISTRIBUTION WIDTH 19.1 % (11.6-13.7); WHITE BLOOD COUNT (AUTO) 6.1 K/uL (4.8-10.8)
--- NOTE | 2020-03-30 13:34 | NUR ---
outer diameter technician at pt bedside.
--- NOTE | 2020-03-30 13:50 | NUR ---
DR MORE AT BEDSIDE, PRIYA SAMPLE COLLECTED AND BROUGHT TO LAB
[2020-03-30 14:29] LABS: ALBUMIN 3.3 g/dL (3.4-5.0); ANION GAP 12.1 (8-16); ASPARTATE AMINOTRANSFERASE 20 U/L (15-37); CHLORIDE 106 mmol/L (98-107); CREATININE 0.9 mg/dL (0.6-1.3); GLUCOSE 110 mg/dL (74-106); POTASSIUM 4.1 mmol/L (3.5-5.1); SODIUM SERUM 148 mmol/L (136-145); TOTAL BILIRUBIN 0.4 mg/dL (0.0-1.0); UREA NITROGEN, BLOOD 25 mg/dL (7-18)
--- NOTE | 2020-03-30 15:04 | NUR ---
pt is resting in bed with even and unlabored respirations observed. bed in lowest position, brakes locked, x2 siderails up. will continue to monitor. pt repositioned with pillow to relieve pressure off of sacrum
[2020-03-30] MEDS ORDERED: FUROSEMIDE 40 MG/4 ML VIAL IVP SCH (15:05)
[2020-03-30] MEDS ORDERED: DEXAMETHASONE 4 MG/ML VIAL IVP SCH (15:05)
[2020-03-30] MEDS ORDERED: AZITHROMYCIN 500 MG in DEXTROSE 5% 250 ML IV SCH (15:05)
[2020-03-30] MEDS ORDERED: ASPIRIN 81 MG TAB.CHEW PO ONE (15:10)
[2020-03-30] MEDS ORDERED: POTASSIUM CHLORIDE 10 MEQ TABER PO PRN (15:35)
[2020-03-30] MEDS ORDERED: DOCUSATE SODIUM 100 MG GELCAP PO PRN (15:35)
[2020-03-30] MEDS ORDERED: guaiFENesin DM 200/20 MG-10 ML 10 ML UDC PO PRN (15:35)
[2020-03-30] MEDS ORDERED: ACETAMINOPHEN 325 MG TAB PO PRN (15:35)
[2020-03-30] MEDS ORDERED: ONDANSETRON 4 MG/2 ML VIAL IM/IVP PRN (15:35)
[2020-03-30] MEDS ORDERED: FUROSEMIDE 40 MG/4 ML VIAL IVP ONE (15:40)
[2020-03-30] MEDS ORDERED: cefTRIAXone 1,000 MG VIAL ONE (16:03)
--- NOTE | 2020-03-30 16:29 | NUR ---
report given to chastity antonio for transfer to tele 106B. eta 15 mins.
[2020-03-30 16:32] LABS: FREE T4 (FREE THYROXINE) 0.73 ng/dL (0.76-1.46); MAGNESIUM 2.3 mg/dL (1.8-2.4); PHOSPHORUS 4.4 mg/dL (2.5-4.9); THYROID STIMULATING HORMONE 1.8 uIU/mL (0.34-3.74)
--- NOTE | 2020-03-30 16:40 | NUR ---
mrsa sample collected. will drop off at lab.
--- NOTE | 2020-03-30 16:54 | NUR ---
Patient will be admitted to care of Dr. Tye Headley. Admited to Telemetry. Will go to room 106B. Belongings list completed. Report to Joanne SEGURA.
--- NOTE | 2020-03-30 17:05 | NUR ---
RECEIVED ENDORSEMENT FROM ER NURSE MERCEDES. PATIENT IS FROM [facility] AND IN BED AOX2. CHIEF COMPLAINT OF SOB FOR 1WK. DX OF CHF EXACERBATION, RESPI FAILURE. HX OF RIGHT SIDED WEAKNESS, DEMENTIA, DM, HTN, AND HF. PATIENT HAS NO ALLERGIES. FULL CODE. IS ON CARDIAC DIET. IV SITE IS LEFT FA 20 ON SL. PATIENT IS ON 8L NRB. PATIENT IS NON AMBULATORY. RIGHT KNEE SCAB. ON STRICT I/O, MONITOR WT DAILY, SCD, ELEVATE HOB 30 DEGREES. ASPIRATION PRECAUTION. VITAL SIGNS ARE WITHIN NORMAL RANGE. SAFETY MEASURES ARE IN PLACE. CALL LIGHT WITHIN REACH. WILL CONTINUE TO MONITOR NEEDED.
--- NOTE | 2020-03-30 17:28 | NUR ---
SCHEDULED MEDICATION LASIX NOT GIVEN, MEDICATION GIVEN AT ER DURING ADMISSION.
[2020-03-30 17:59] VITALS: BP 146/100
--- NOTE | 2020-03-30 19:09 | NUR ---
ENDORSED TO GASOLINE CATALYST OPERATOR NURSE FOR CONTINUATION OF PLAN OF CARE. PATIENT IS IN STABLE CONDITION.
--- NOTE | 2020-03-30 19:10 | NUR ---
RECEIVED BEDSIDE REPORT FROM DAY SHIFT NURSE FOR CONTINUITY OF CARE. PT IS AWAKE, LAYING IN SEMI FOWLERS POSITION. 8L O2 NRB IN PLACE WITH BREATHING UNLABORED. CHEST RISE AND FALL IS SYMMETRICAL. PT IS NOT IN ANY DISTRESS. ON TELE MONITORING,SR. PT IS BEDREST WITH FALL PRECAUTIONS IN PLACE. RIGHT KNEE SCAB, CLOSED. SACRAL REDNESS PRESENT. IV IS IN THE LEFT FOREARM 20 GAUGE SALINE LOCKED. SKIN IS WARM AND DRY. PT IS STABLE AT THIS TIME. PLAN OF CARE DISCUSSED.
[2020-03-30 20:00] VITALS: BP 148/96
[2020-03-30] MEDS ORDERED: METOPROLOL 25 MG TAB PO SCH (21:00)
--- NOTE | 2020-03-30 21:30 | NUR ---
ROUNDED ON PT HE IS AWAKE AND LAYING IN SEMI FOWLERS POSITION. PT APPEARS TO BE CONFUSED, ASKING HOW HE GOT HERE. PT WAS REORIENTED AND VERBALIZED UNDERSTANDING ABOUT WHY HE IS IN THE HOSPITAL. A&OX1. PT'S DIAPER IS DRY AND IN PLACE. BED ALARM IS ON. BREATHING IS UNLABORED. DENIES PAIN AT THIS TIME.
[2020-03-30] MEDS: FUROSEMIDE 40 MG/4 ML VIAL IVP SCH (21:38)
[2020-03-30] MEDS: METOPROLOL 25 MG TAB PO SCH (21:39)
--- NOTE | 2020-03-30 23:30 | NUR ---
PT WAS CHANGED AND REPOSITIONED. PT VOIDED IN DIAPER. CLEAR, YELLOW URINE. NO DISTRESS NOTED. PT IS ON 8L O2 OXIMIZER WITH BREATHING UNLABORED. PULSE OX IN PLACE TO MONITOR OXYGEN, IT IS CURRENTLY 96% O2 SAT. PT DENIES ANY PAIN AT THIS TIME. PT REQUESTED FOOD AND [place]FRICANA STUDIES PROFESSOR HELPED FEED PT. CALL LIGHT IS WITHIN REACH.
[2020-03-31] VITALS: BP 115/91
--- NOTE | 2020-03-31 01:30 | NUR ---
PT WAS ASLEEP, BUT AWOKE EASILY WITH NOISE. PT IS CONFUSED AND STATES HE WANTS TO GO BACK HOME. PT WAS REPOSITIONED. NO CHEST PAIN OR SOB. COUGHING IS NOTED, NONPRODUCTIVE. OXIMIZER IS IN PLACE WITH 8L O2 RUNNING. O2 SAT IS 100%. PT IS STABLE.
--- NOTE | 2020-03-31 03:30 | NUR ---
PT IS SLEEPING, COMFORTABLY. O2 SAT IS 100% ON 9L O2 OXIMIZER. OXYGEN WAS TITRATED DOWN TO 5L O2 OXIMIZER. PT IS TOLERATING THIS WELL. O2 SAT IS NOW 97%. NO RESPIRATORY DISTRESS NOTED. WILL CONTINUE TO MONITOR. CALL LIGHT IS WITHIN REACH.
[2020-03-31 04:00] VITALS: BP 127/66
--- NOTE | 2020-03-31 04:55 | NUR ---
PT WAS CHANGED AND REPOSITIONED. PT VOIDED IN DIAPER. PT IS INCONTINENT. CLEAR, YELLOW URINE. NO DISTRESS NOTED. BREATHING IS UNLABORED AND PT DENIES PAIN. O2 SAT IS 95% ON 7L O2 OXIMIZER. PT IS STABLE.
--- NOTE | 2020-03-31 05:00 | NUR ---
ER NURSE NEVER BROUGHT PICTURES OF WOUNDS. TOOK NEW PICTURE OF THE SACRAL WOUND 1 CM X 1 CM, OPEN. ALSO TOOK PICTURE OF A SCAB ON THE RIGHT KNEE, CLOSED. PLACED PICTURES IN CHART.
[2020-03-31 06:29] LABS: BASOPHILS % (AUTO) 0.3 % (0.0-2.0); EOSINOPHILS % (AUTO) 0.3 % (0.0-4.0); HEMATOCRIT 40.9 % (36-52); HEMOGLOBIN 13.3 g/dL (12.0-18.0); LYMPHOCYTES # (AUTO) 0.4 K/uL (2.0-11.5); LYMPHOCYTES % (AUTO) 7.4 % (20.5-51.1); MEAN CORPUSCULAR HEMOGLOBIN 31 pg (27-31); MEAN CORPUSCULAR HGB CONC 32 g/dL (33-37); MEAN CORPUSCULAR VOLUME 95.7 fL (80-94); MONOCYTES # (AUTO) 0.4 K/uL (0.8-1.0); MONOCYTES % (AUTO) 7.5 % (1.7-9.3); NEUTROPHILS % (AUTO) 84.5 % (42.2-75.2); PLATELET COUNT (AUTO) 186 K/uL (140-450); RED BLOOD CELL COUNT(AUTO) 4.28 MIL/uL (4.20-6.10); RED CELL DISTRIBUTION WIDTH 18.8 % (11.6-13.7)
--- NOTE | 2020-03-31 07:01 | NUR ---
WOUND CONSULT AND FNS CONSULT WAS ORDERED.
[2020-03-31 07:04] LABS: ANION GAP 9.4 (8-16); CARBON DIOXIDE 37.5 mmol/L (21-32); CHLORIDE 108 mmol/L (98-107); GLUCOSE 99 mg/dL (74-106); POTASSIUM 3.9 mmol/L (3.5-5.1); SODIUM SERUM 151 mmol/L (136-145); UREA NITROGEN, BLOOD 26 mg/dL (7-18)
--- NOTE | 2020-03-31 07:30 | NUR ---
ENDORSED PT TO DAY SHIFT NURSE FOR CONTINUITY OF CARE. PT IS STABLE AT THIS TIME. PLAN OF CARE DISCUSSED.
[2020-03-31 08:08] LABS: T4 (THYROXINE) 5.6 ug/dL (4.5-12.0)
--- NOTE | 2020-03-31 08:23 | NUR ---
Patient awake, alert and oriented. Able to verbalize needs. breathing non labored and remains on 7 L of Oxygen. Denies cough, afebrile and has no fever.
[2020-03-31 08:29] VITALS: BP 140/105
[2020-03-31] MEDS ORDERED: ASPIRIN 325 MG TAB PO SCH (09:00)
--- NOTE | 2020-03-31 09:01 | NUR ---
PATIENT HAS BEEN SCREENED AND CATEGORIZED HIGH NUTRITION RISK. PATIENT WILL BE SEEN WITHIN 1-2 DAYS OF ADMISSION. 03/31/20-04/01/[address]
[2020-03-31] MEDS: lisinopriL 20 MG TAB PO SCH (09:54)
[2020-03-31] MEDS: FUROSEMIDE 20 MG TAB PO SCH (09:54)
[2020-03-31] MEDS: METOPROLOL 25 MG TAB PO SCH ×2 (09:55→21:01)
[2020-03-31] MEDS: FUROSEMIDE 40 MG/4 ML VIAL IVP SCH ×2 (09:56→21:00)
[2020-03-31] MEDS: PANTOPRAZOLE 40 MG TABEC PO SCH (09:56)
--- NOTE | 2020-03-31 11:38 | NUR ---
WOUND CARE EVALUATION NOTE: SKIN ASSESSMENT DONE TO THIS 70 Y/O PT. WITH INCONTINENT OF BLADDER AT TIME OF ASSESSMENT, SKIN DRY, HAIRY, TATTOO TO RIGHT UPPER ARM. PRESSURE INJURY STAGE 2 TO SACRAL COCCYX 1X1 CM SUPERFICIAL DEPTH, WOUND BED 100% PINK, SURROUNDING SKIN MOIST, AREA OFFLOADING WITH PILLOW. RECOMMENDATIONS: -CLEANSE SACRALCOCCYX WOUND WITH NS, PAT DRY, APPLY HYDROCOLLOID DRESSING CHANGE 3X/WEEK ON -- AND PRN IF SOILING -TURN AND REPOSITION PATIENT Q 2H -ASSESS AND MONITOR SKIN CONDITION DURING POSITION CHANGE -OFFLOAD BILATERAL HEELS BY PLACING PILLOWS UNDER CALVES AT ALL TIMES, UNLESS OTHERWISE CONTRAINDICATED -PRESSURE REDISTRIBUTION BY PLACING PILLOWS AND OFFLOADING SACRALCOCCYX -KEEP SKIN CLEAN AND DRY AT ALL TIMES.
[2020-03-31] MEDS ORDERED: HYDROCOLLOID DRESSING TP PRN (11:50)
[2020-03-31 12:00] VITALS: BP 110/80
[2020-03-31] MEDS: HYDROCOLLOID DRESSING TP SCH (13:28)
[2020-03-31] MEDS: RIVAROXABAN 10 MG TAB PO SCH (14:52)
--- NOTE | 2020-03-31 15:11 | NUR ---
03/31/20 RD INITIAL ASSESSMENT COMPLETED PLEASE REFER TO NUTRITION ASSESSMENT UNDER CARE ACTIVITY FOR ESTIMATED NUTRITIONAL NEEDS. 1. RECOMMEND SOFT CARDIAC DIET TOLERATED 2. RECOMMEND KAMAR BID AND ENSURE TID FOR WOUND HEALING 3. RD TO FOLLOW-UP 3-5 DAYS, MODERATE RISK MADELEINE MATTHEWS, ASHLEE
[2020-03-31 18:00] VITALS: BP 127/76
--- NOTE | 2020-03-31 18:44 | NUR ---
Patient alert, oriented. Lung sounds have crackles throughout and breathing is normal on 7 L. No fever, cough and remains in bed with no further needs.
--- NOTE | 2020-03-31 20:00 | NUR ---
PT IS ALERT. ORIENTED X1. FORGETFUL AND CONFUSED AT TIMES AT TIMES. DENIES PAIN AT THIS TIME. BREATHING IS SOLOW AND UNLABORED. LUNGS SOUNDS ARE RHONCHI/CRACKLES IN ALL QUADRANTS. pT DENIES SOB, DYPSNEA, TROUBLE BREATHING,. HOB ELEVATED AT 30. BE MARSHALL LOWEST POSITION.CALL IGHT WITHIN REACH. WILL CONTINUE TO MONITOR
[2020-03-31] MEDS: ZOLPIDEM 5 MG TAB PO PRN (21:51)
[2020-03-31] MEDS: HYDROcodone/APAP 7.5/325 MG 1 TAB PO PRN (21:51)
--- NOTE | 2020-04-01 | NUR ---
PT C/O PAIN. NORCO GIVEN, PT REPOSITIONED. CALL LIGHT WITHIN REACH. WILL CONTINUE TO MONITOR
[2020-04-01 00:20] LABS: APPEARANCE,URINE CLEAR (CLEAR); BILIRUBIN,URINE NEGATIVE (NEGATIVE); BLOOD, URINE NEGATIVE (NEGATIVE); COLOR,URINE YELLOW (YELLOW); LEUKOCYTE ESTERASE ,URINE NEGATIVE (NEGATIVE); NITRITE, URINE NEGATIVE (NEGATIVE); UGLUCOSE NEGATIVE (NEGATIVE)
--- NOTE | 2020-04-01 06:05 | NUR ---
PT C/O PAIN. NORCO GIVEN, PT REPOSITIONED. CALL LIGHT WITHIN REACH. WILL CONTINUE TO MONITOR.
[2020-04-01] MEDS: HYDROcodone/APAP 7.5/325 MG 1 TAB PO PRN ×2 (06:21→21:55)
--- NOTE | 2020-04-01 07:30 | NUR ---
RECEIVED PATIENT FROM [facility] NURSE. PATIENT IS CURRENTLY ON STANDARD PRECAUTIONS. RECIEVED CRITICAL REPORT FROM LAB, PATIENT HAS CO2 LEVEL OF 41.6. DR. SANDY NOTIFIED. PER DR. SANDY, HE WILL LOOK INTO IT. NO FURTHER ORDERS AT THIS TIME. PATIENT IS CURRENTLY ON 8 LITER OXYMIZER, NO SIGNS OR SYMPTOMS OF DSYPNEA. OXYGEN SATURATION AT 99% AT THIS TIME. POTASSIUM LEVEL OF 3.4 REPLACED WITH 40 MEQ POTASSIUM PER EMAR AND PHYSICIAN ORDER. VITAL SIGNS STABLE. LUNG SOUNDS DIMINISHED AND CRACKLES PRESENT THROUGHOUT ALL LUNG HOOPER. PATIENT CURRENTLY ON LASIX THERAPY. SAFETY PRECAUTIONS IN PLACE. CALL LIGHT WITHIN REACH. WILL CONTINUE TO PROVIDE CARE FOR PATIENT.
[2020-04-01 07:50] LABS: BASOPHILS % (AUTO) 0.7 % (0.0-2.0); EOSINOPHILS # (AUTO) 0.2 K/uL (0-0.4); HEMATOCRIT 38.9 % (36-52); HEMOGLOBIN 12.9 g/dL (12.0-18.0); LYMPHOCYTES # (AUTO) 0.6 K/uL (2.0-11.5); LYMPHOCYTES % (AUTO) 9.7 % (20.5-51.1); MEAN CORPUSCULAR HEMOGLOBIN 31 pg (27-31); MEAN CORPUSCULAR HGB CONC 33 g/dL (33-37); MONOCYTES # (AUTO) 0.6 K/uL (0.8-1.0); MONOCYTES % (AUTO) 8.7 % (1.7-9.3); NEUTROPHILS # (AUTO) 5.1 K/uL (1.8-7.7); NEUTROPHILS % (AUTO) 77.9 % (42.2-75.2); PLATELET COUNT (AUTO) 159 K/uL (140-450); RED CELL DISTRIBUTION WIDTH 18.9 % (11.6-13.7); WHITE BLOOD COUNT (AUTO) 6.6 K/uL (4.8-10.8)
[2020-04-01 07:52] LABS: CHLORIDE 102 mmol/L (98-107); GLUCOSE 86 mg/dL (74-106); POTASSIUM 3.4 mmol/L (3.5-5.1); SODIUM SERUM 145 mmol/L (136-145); UREA NITROGEN, BLOOD 28 mg/dL (7-18)
[2020-04-01 08:19] LABS: CARBON DIOXIDE 41.4 mmol/L (21-32)
[2020-04-01] MEDS: FUROSEMIDE 20 MG TAB PO SCH (08:56)
[2020-04-01] MEDS: METOPROLOL 25 MG TAB PO SCH ×2 (08:57→21:52)
[2020-04-01] MEDS: PANTOPRAZOLE 40 MG TABEC PO SCH (09:00)
[2020-04-01] MEDS: RIVAROXABAN 10 MG TAB PO SCH (09:00)
[2020-04-01] MEDS: lisinopriL 20 MG TAB PO SCH (09:01)
[2020-04-01] MEDS: FUROSEMIDE 40 MG/4 ML VIAL IVP SCH ×2 (09:02→20:41)
--- NOTE | 2020-04-01 16:21 | NUR ---
DR. PERAZA PAGED REGARDING RESULTS OF REPEAT ABG BLOOD DRAW AND PCo2 of 61.9, currently pending response from Dr. Peraza
--- NOTE | 2020-04-01 18:09 | NUR ---
PATIENT IS CURRENTLY AWAKE ALERT AND ORIENTED X 3. IV SITE TO THE RFA CURRENTLY SALINE LOCKED. CONDOM CATHETER IN PLACE DRAINING YELLOW URINE TO GRAVITY. NO REPORT OF PAIN THROUGHOUT THE SHIFT. PATIENT'S AFIB CONTROLLED HEART RATE OF 86/MIN. NO REPORT OF CHEST PAIN. PATIENT IS CURRENTLY ON 8 LITERS OXYMIZER AND REPORTS SOB ON EXERTION. DR. SANDY MADE AWARE OF PATIENT'S ABG RESULTS. NO FURTHER ORDERS AT THIS TIME. PATIENT IS ON IV DIURETICS PER PHYSICIAN ORDER AND PATIENT EMAR. SAFETY PRECAUTIONS IN PLACE. CALL LIGHT WITHIN REACH. WILL ENDORSE ALL FURTHER CARE TO THE NOC NURSE.
[2020-04-01 20:00] VITALS: BP 136/90
--- NOTE | 2020-04-01 20:00 | NUR ---
RECEIVED REPORT FROM DAYSHIFT NURSE. PT IS ALERT. ORIENTED X1. FORGETFUL AND CONFUSED AT TIMES AT TIMES. DENIES PAIN AT THIS TIME. BREATHING IS SHALLOW AND UNLABORED. LUNGS SOUNDS ARE RHONCHI/CRACKLES IN ALL QUADRANTS. PT DENIES SOB, DYPSNEA, TROUBLE BREATHING. HOB ELEVATED AT 30. BED AT LOWEST POSITION.CALL LIGHT WITHIN REACH. WILL CONTINUE TO MONITOR
[2020-04-01] MEDS: PIPERACILLIN/TAZOBACTAM 3.375 GM in DEXTROSE 5% 50 ML IV SCH (21:00)
[2020-04-01] MEDS: ZOLPIDEM 5 MG TAB PO PRN (21:56)
[2020-04-01] MEDS ORDERED: PIPERACILLIN/TAZOBACTAM 3.375 GM VIAL IV ONE (21:57)
[2020-04-02] VITALS: BP 100/73
[2020-04-02 04:00] VITALS: BP 128/74
[2020-04-02] MEDS ORDERED: PIPERACILLIN/TAZOBACTAM 3.375 GM VIAL IV ONE (05:28)
[2020-04-02] MEDS: PIPERACILLIN/TAZOBACTAM 3.375 GM in DEXTROSE 5% 50 ML IV SCH ×3 (05:54→21:04)
--- NOTE | 2020-04-02 07:30 | NUR ---
RECEIVED BEDSIDE REPORT FROM NUCLEAR RADIATION ENGINEER NURSE FOR CONTINUITY OF CARE. PT IS AWAKE, LAYING IN SEMI FOWLERS POSITION. 7 L O2 OXIMIZER IN PLACE WITH BREATHING UNLABORED. CHEST RISE AND FALL IS SYMMETRICAL. PT IS NOT IN ANY DISTRESS. RIGHT KNEE SCAB, CLOSED. SACRAL REDNESS PRESENT. IV IS IN THE LEFT WRIST 20 GAUGE SALINE LOCKED. SKIN IS WARM AND DRY. PLAN OF CARE DISCUSSED. SAFETY PRECAUTIONS IN PLACE. CALL LIGHT WITHIN REACH. WILL CONTINUE TO MONITOR.
[2020-04-02 07:40] LABS: BASOPHILS # (AUTO) 0.1 K/uL (0.00-0.22); EOSINOPHILS # (AUTO) 0.2 K/uL (0-0.4); EOSINOPHILS % (AUTO) 3.2 % (0.0-4.0); HEMATOCRIT 40.2 % (36-52); HEMOGLOBIN 13.2 g/dL (12.0-18.0); LYMPHOCYTES # (AUTO) 0.6 K/uL (2.0-11.5); LYMPHOCYTES % (AUTO) 8.1 % (20.5-51.1); MEAN CORPUSCULAR HEMOGLOBIN 31 pg (27-31); MEAN CORPUSCULAR HGB CONC 33 g/dL (33-37); MEAN CORPUSCULAR VOLUME 94.9 fL (80-94); MONOCYTES # (AUTO) 0.7 K/uL (0.8-1.0); MONOCYTES % (AUTO) 9.2 % (1.7-9.3); NEUTROPHILS # (AUTO) 5.6 K/uL (1.8-7.7); NEUTROPHILS % (AUTO) 78.5 % (42.2-75.2); PLATELET COUNT (AUTO) 145 K/uL (140-450); RED BLOOD CELL COUNT(AUTO) 4.23 MIL/uL (4.20-6.10); RED CELL DISTRIBUTION WIDTH 18.9 % (11.6-13.7); WHITE BLOOD COUNT (AUTO) 7.1 K/uL (4.8-10.8)
[2020-04-02 07:47] LABS: ANION GAP 3.6 (8-16); CHLORIDE 101 mmol/L (98-107); GLUCOSE 101 mg/dL (74-106); POTASSIUM 3.7 mmol/L (3.5-5.1); SODIUM SERUM 144 mmol/L (136-145); UREA NITROGEN, BLOOD 28 mg/dL (7-18)
[2020-04-02 07:51] LABS: CARBON DIOXIDE 43.1 mmol/L (21-32)
[2020-04-02 08:00] VITALS: BP 130/94
[2020-04-02] MEDS: FUROSEMIDE 40 MG/4 ML VIAL IVP SCH (09:07)
[2020-04-02] MEDS: FUROSEMIDE 20 MG TAB PO SCH (09:08)
[2020-04-02] MEDS: lisinopriL 20 MG TAB PO SCH (09:09)
[2020-04-02] MEDS: RIVAROXABAN 10 MG TAB PO SCH (09:10)
[2020-04-02] MEDS: METOPROLOL 25 MG TAB PO SCH ×2 (09:10→21:00)
[2020-04-02] MEDS: PANTOPRAZOLE 40 MG TABEC PO SCH (09:10)
--- NOTE | 2020-04-02 10:14 | NUR ---
PATIENT O2 SATURATION IS AT 100% AT 7 L OXIMIZER. TITRATED O2 TO 5 L O2 SATURATION AT 96%
[2020-04-02 12:00] VITALS: BP 96/73
--- NOTE | 2020-04-02 13:33 | NUR ---
ALL SCHEDULED MEDS GIVEN. PT IS EATING ON THE EDGE OF THE BED. NO DISTRESS NOTED. WILL CONTINUE TO MONITOR.
[2020-04-02 16:00] VITALS: BP 107/72
--- NOTE | 2020-04-02 16:00 | NUR ---
CHECKED ON PATIENT. PATIENT IS STABLE AND ASLEEP IN BED. NO SIGNS OF RESPIRATORY DISTRESS NOTED. WILL CONTINUE MONITOR.
--- NOTE | 2020-04-02 18:00 | NUR ---
CHECKED PATIENT. PATIENT IS STABLE AND SITTING ON THE EDGE OF THE BED. NO RESPIRATORY DISTRESS NOTED. WILL CONTINUE TO MONITOR.
--- NOTE | 2020-04-02 19:30 | NUR ---
ENDORSED TO ENGINEERING SUPERVISOR NURSE FOR CONTINUITY OF CARE. PT IS STABLE.
[2020-04-02 20:00] VITALS: BP 99/57
--- NOTE | 2020-04-02 20:00 | NUR ---
RECEIVED REPORT FROM DAYSHIFT NURSE. PT IS ALERT. ORIENTED X3. FORGETFUL AND CONFUSED AT TIMES. DENIES PAIN AT THIS TIME. BREATHING IS SHALLOW AND UNLABORED. LUNGS SOUNDS ARE CRACKLES IN ALL QUADRANTS. PT DENIES SOB, DYPSNEA, TROUBLE BREATHING. HOB ELEVATED AT 30. BED AT LOWEST POSITION.CALL LIGHT WITHIN REACH. WILL CONTINUE TO MONITOR
[2020-04-02] MEDS: ACETAZOLAMIDE SOD 250 MG TAB PO SCH (21:05)
[2020-04-02] MEDS: ZOLPIDEM 5 MG TAB PO PRN (21:05)
[2020-04-02] MEDS: HYDROcodone/APAP 7.5/325 MG 1 TAB PO PRN (21:07)
[2020-04-03] VITALS: BP 133/81
[2020-04-03 04:00] VITALS: BP 133/79
[2020-04-03] MEDS: PIPERACILLIN/TAZOBACTAM 3.375 GM in DEXTROSE 5% 50 ML IV SCH ×2 (05:05→13:22)
[2020-04-03] MEDS: HYDROcodone/APAP 7.5/325 MG 1 TAB PO PRN (05:05)
[2020-04-03 06:28] LABS: BASOPHILS # (AUTO) 0.1 K/uL (0.00-0.22); BASOPHILS % (AUTO) 0.8 % (0.0-2.0); EOSINOPHILS # (AUTO) 0.2 K/uL (0-0.4); EOSINOPHILS % (AUTO) 3.4 % (0.0-4.0); HEMATOCRIT 41.7 % (36-52); HEMOGLOBIN 13.7 g/dL (12.0-18.0); LYMPHOCYTES # (AUTO) 0.5 K/uL (2.0-11.5); LYMPHOCYTES % (AUTO) 8.8 % (20.5-51.1); MEAN CORPUSCULAR HEMOGLOBIN 31 pg (27-31); MEAN CORPUSCULAR HGB CONC 33 g/dL (33-37); MEAN CORPUSCULAR VOLUME 95.1 fL (80-94); MONOCYTES # (AUTO) 0.7 K/uL (0.8-1.0); MONOCYTES % (AUTO) 11.2 % (1.7-9.3); NEUTROPHILS # (AUTO) 4.6 K/uL (1.8-7.7); NEUTROPHILS % (AUTO) 75.8 % (42.2-75.2); PLATELET COUNT (AUTO) 126 K/uL (140-450); RED BLOOD CELL COUNT(AUTO) 4.38 MIL/uL (4.20-6.10); RED CELL DISTRIBUTION WIDTH 18.6 % (11.6-13.7); WHITE BLOOD COUNT (AUTO) 6.1 K/uL (4.8-10.8)
[2020-04-03 06:57] LABS: ANION GAP 5.5 (8-16); CHLORIDE 101 mmol/L (98-107); CREATININE 0.9 mg/dL (0.6-1.3); GLUCOSE 108 mg/dL (74-106); POTASSIUM 3.5 mmol/L (3.5-5.1); SODIUM SERUM 141 mmol/L (136-145); UREA NITROGEN, BLOOD 25 mg/dL (7-18)
--- NOTE | 2020-04-03 07:15 | NUR ---
RECEIVED ENDORSEMENT FROM SOCIAL MEDIA SR STRATEGY MANAGER NURSE FOR CONTINUATION PLAN OF CARE. PATIENT IN BED AOX2. PATIENT HAS HX OF DEMENTIA. ON 5L OXIMIZER. IV SITE IS IN PLACE AND INTACT. SAFETY MEASURES ARE IN PLACE. CALL LIGHT WITHIN REACH. WILL CONTINUE TO MONITOR NEEDED.
[2020-04-03 08:00] VITALS: BP 128/79
[2020-04-03] MEDS ORDERED: FUROSEMIDE 40 MG/4 ML VIAL IVP SCH (09:00)
--- NOTE | 2020-04-03 09:00 | NUR ---
SCHEDULED MEDICATIONS GIVEN. PATIENT NOT IN DISTRESS. WILL CONTINUE TO MONITOR NEEDED.
--- NOTE | 2020-04-03 09:20 | NUR ---
PATIENT COMPLAINING OF DISCOMFORT ON SACRAL AREA. I CLEANED THE AREA AND USED A NEW HYDROCOLLOID DRESSING. PATIENT REPOSITIONED. WILL CONTINUE TO MONITOR NEEDED.
[2020-04-03] MEDS: lisinopriL 20 MG TAB PO SCH (09:23)
[2020-04-03] MEDS: PANTOPRAZOLE 40 MG TABEC PO SCH (09:23)
[2020-04-03] MEDS: RIVAROXABAN 10 MG TAB PO SCH (09:24)
[2020-04-03] MEDS: METOPROLOL 25 MG TAB PO SCH (09:24)
[2020-04-03] MEDS: ACETAZOLAMIDE SOD 250 MG TAB PO SCH (09:38)
--- NOTE | 2020-04-03 11:11 | NUR ---
JOSE RAFAEL TURN OUT WORKER: PLAN FOR [place]IENT TO [place] [facility] [place]. FAXED PATIENTS CLINICALS WILL FOLLOW UP FOR A BED NUMBER. Addendum: 04/03/20 at 1353 by Estefany Wilcox CM JOSE RAFAEL TRAVIS: CHARMAINE PATEL [place] [facility] [place] CAN RETURN TO ROOM [facility]. JORGE ASK IF WE CAN SEND PATIENT AFTER 8:00 PM Addendum: 04/03/20 at 1423 by Estefany Wilcox CM JOSE RAFAEL TRAVIS: [phone] AND SPOKE TO REP FROM [facility] TO REQUEST TRANSPORTATION. CONFIRMATION# [id number] THEY WILL BE CALLING BACK ONCE THEY HAVE AN AVAILABLE [employer] OPERATOR. Addendum: 04/03/20 at 1648 by Estefany Wilcox CM JOSE RAFAEL TURN OUT WORKER: TRANSPORTATION HAS BEEN ARRANGED WITH [facility] FOR 8:00 PM. NOTIFIED CHARGE NURSE JERAD
[2020-04-03] MEDS ORDERED: ATOR20TA PO (11:42)
[2020-04-03] MEDS ORDERED: ASPI-1822 PO (11:42)
[2020-04-03] MEDS ORDERED: FURO-572 PO (11:42)
[2020-04-03] MEDS: HYDROCOLLOID DRESSING TP SCH (11:43)
[2020-04-03 12:00] VITALS: BP 105/71
--- NOTE | 2020-04-03 13:10 | NUR ---
SCHEDULED IV MEDICATION GIVEN. PATIENT IN BED NO DISTRESS NOTED. WILL CONTINUE TO MONITOR NEEDED.
[2020-04-03 16:00] VITALS: BP 110/71
--- NOTE | 2020-04-03 17:30 | NUR ---
ENDORSED TO ADMISSION NURSE BERMUDEZ. PATIENT IN STABLE CONDITION AND WILL BE TRANSFERRED BACK. AWAITING FOR [facility]SP[facility].
--- NOTE | 2020-04-03 19:00 | NUR ---
ENDORSED TO CARPENTER AND JOINER NURSE FOR CONTINUATION OF CARE. PATIENT IN STABLE CONDITION
--- NOTE | 2020-04-03 20:43 | NUR ---
PT DISCHARGED BACK TO [facility]IA [facility] IN STABLE COND.REPORT GIVEN TO TRANSPORT TEAM. PT ON 02 5L VIA OXIMIZER. IV D/C' D WITH CATH INTACT. SPOKE WITH PT'S SON BRIAN AND UPDATED HIM ON PT COND.
== END 2020-04-03 20:15 | DRG 291 ==
LOC: MED 12:32 → MTU 16:11
PROVIDERS: ADMIT Family Medicine; ATTEND Family Medicine
DX: I11.0 Hypertensive heart disease with heart failure (principal); J96.21 Acute and chronic respiratory failure with hypoxia; G93.41 Metabolic encephalopathy; E44.1 Mild protein-calorie malnutrition; E87.0 Hyperosmolality and hypernatremia; J44.1 Chronic obstructive pulmonary disease with (acute) exacerbation; I50.43 Acute on chronic combined systolic (congestive) and diastolic (congestive) heart failure; I48.91 Unspecified atrial fibrillation; Z86.73 Personal history of transient ischemic attack (TIA), and cerebral infarction without residual deficits; Z20.822 Contact with and (suspected) exposure to COVID-19; N19 Unspecified kidney failure; Z74.01 Bed confinement status
CPT/HCPCS: 36415; 71045; 80048; 80053; 81003; 82150; 83036; 83690; 83735; 83880; 84100; 84436; 84439; 84443; 84479; 84484; 85025; 85610; 85730; 87081; 93005; 96374; 96375; 99285; J0696; J1100; J1940; J2543; J7030; J7060

== ENCOUNTER 2023-11-08 10:44 | Inpatient (IN) | payer OTHER ==
[~2023-11-08] VITALS: Ht 170.2 cm; Wt 95.3 kg
[~2023-11-08 10:44] MED LIST changes: -AMOX-999 PO; +APIX2.5 PO; -ASPI-1205 PO; +ASPI-1822 PO; +ATOR20TA40 PO; +CARV3.122 PO; -DEC1 PO; -LISI-487 PO; +LOSA-270 PO; -METO25TA PO; +VANC1PDS14 IV
[2023-11-08 10:45] VITALS: BP 142/72; PULSE 75; RESP 18; TEMP 97.9; O2SAT 98
[2023-11-08 12:22] VITALS: O2SAT 98
[2023-11-08 12:25] LABS: BASOPHILS # (AUTO) 0.1 K/uL (0.00-0.22); BASOPHILS % (AUTO) 0.9 % (0.0-2.0); EOSINOPHILS # (AUTO) 0.5 K/uL (0-0.4); HEMATOCRIT 44.9 % (36-52); HEMOGLOBIN 15.2 g/dL (12.0-18.0); LYMPHOCYTES # (AUTO) 0.9 K/uL (2.0-11.5); MEAN CORPUSCULAR HEMOGLOBIN 33 pg (27-31); MEAN CORPUSCULAR HGB CONC 34 g/dL (33-37); MEAN CORPUSCULAR VOLUME 97.8 fL (80-94); MONOCYTES # (AUTO) 0.7 K/uL (0.8-1.0); MONOCYTES % (AUTO) 9.3 % (1.7-9.3); NEUTROPHILS # (AUTO) 5.4 K/uL (1.8-7.7); NEUTROPHILS % (AUTO) 71.8 % (42.2-75.2); PLATELET COUNT (AUTO) 105 K/uL (140-450); RED CELL DISTRIBUTION WIDTH 14.7 % (11.6-13.7); WHITE BLOOD COUNT (AUTO) 7.6 K/uL (4.8-10.8)
[2023-11-08 12:36] LABS: ANION GAP 8.3 (8-16); CALCIUM 8.5 mg/dL (8.5-10.1); CARBON DIOXIDE 32.4 mmol/L (21-32); CHLORIDE 101 mmol/L (98-107); CREATININE 1.1 mg/dL (0.6-1.3); GLUCOSE 94 mg/dL (74-106); POTASSIUM 3.7 mmol/L (3.5-5.1); SODIUM SERUM 138 mmol/L (136-145); UREA NITROGEN, BLOOD 25 mg/dL (7-18)
[2023-11-08] MEDS ORDERED: CEFEPIME 1,000 MG VIAL ONE (13:29)
[2023-11-08] MEDS: FUROSEMIDE 40 MG/4 ML VIAL IVP ONE (13:46)
[2023-11-08] MEDS: CEFEPIME 1,000 MG in DEXTROSE 5% 50 ML IV ONE (13:50)
[2023-11-08] MEDS ORDERED: MAG SULF 2000 MG/WATER PREMIX 50 ML IV PRN (15:45)
[2023-11-08] MEDS ORDERED: ONDANSETRON 4 MG/2 ML VIAL IVP PRN (15:45)
[2023-11-08] MEDS ORDERED: NACL 0.9% 1,000 ML IV SCH (15:45)
[2023-11-08] MEDS ORDERED: ACETAMINOPHEN 325 MG TAB PO PRN (15:45)
[2023-11-08] MEDS ORDERED: FUROSEMIDE 40 MG/4 ML VIAL IVP ONE (16:09)
[2023-11-08] MEDS ORDERED: MELATONIN 3 MG TAB PO PRN (16:35)
[2023-11-08] MEDS ORDERED: MELATONIN 3 MG TAB PO SCH (16:35)
[2023-11-08] MEDS: FUROSEMIDE 40 MG/4 ML VIAL IVP SCH (16:41)
[2023-11-08 16:44] LABS: INR 1.03 (0.8-1.2); PARTIAL THROMBOPLASTIN TIME 29.9 secs (22-35.6); PROTHROMBIN TIME 10.8 secs (10.8-13.4)
[2023-11-08 16:45] LABS: CHOL/HDL RATIO 2.7 (1-4.5); FREE T4 (FREE THYROXINE) 0.93 ng/dL (0.76-1.46); PHOSPHORUS 3.4 mg/dL (2.5-4.9); THYROID STIMULATING HORMONE 1.48 uIU/mL (0.34-3.74)
[2023-11-08] MEDS: HYDROcodone/APAP 7.5/325 MG 1 TAB PO PRN (17:35)
[2023-11-08 17:44] LABS: LACTIC ACID 1.4 mmol/L (0.4-2.0)
[2023-11-08 18:56] LABS: APPEARANCE,URINE CLEAR (CLEAR); BILIRUBIN,URINE NEGATIVE (NEGATIVE); BLOOD, URINE NEGATIVE (NEGATIVE); COLOR,URINE YELLOW (YELLOW); LEUKOCYTE ESTERASE ,URINE NEGATIVE (NEGATIVE); NITRITE, URINE NEGATIVE (NEGATIVE); PROTEIN,URINE NEGATIVE (NEGATIVE); UGLUCOSE NEGATIVE (NEGATIVE); UROBILINOGEN,URINE 0.2 EU/dL (0.2 - 1)
[2023-11-08 19:56] LABS: BACTERIA,URINE FEW /HPF (None Seen); MUCUS,URINE None Seen /LPF (None Seen); RBC,URINE 0-5 /HPF (0-5); SQUAMOUS EPITHELIAL CELL,UR 0-3 (FEW) /LPF (0-3 (FEW)); TRICHOMONAS,URINE None Seen /HPF (None Seen); WBC,URINE 0-5 /HPF (0-5); WHITE BLOOD CELL CASTS,URINE None Seen /LPF (None Seen); YEAST,URINE None Seen /HPF (None Seen)
[2023-11-08 20:28] VITALS: O2SAT 98
[2023-11-08] MEDS ORDERED: NON-FORMULARY ITEM (Melatonin (Melatonin) 3 MG) PO SCH (21:00)
[2023-11-08] MEDS: APIXABAN 2.5 MG TAB PO SCH (21:35)
[2023-11-08] MEDS: carvediloL 3.125 MG TAB PO SCH (21:36)
[2023-11-08] MEDS: DOCUSATE SODIUM 100 MG GELCAP PO SCH (21:36)
[2023-11-08] MEDS: LOSARTAN 50 MG TAB PO SCH (21:37)
[2023-11-08 23:25] VITALS: PULSE 70; RESP 18; O2SAT 96
[2023-11-08] MEDS: MELATONIN 3 MG TAB PO SCH (23:28)
[2023-11-08 23:41] VITALS: O2SAT 96
[2023-11-09] VITALS (11 sets, daily range): BP systolic 114–142; BP diastolic 77–91; PULSE 58–93; RESP 18–24; TEMP 96.6–98; O2SAT 95–100
[2023-11-09 05:27] LABS: BASOPHILS % (AUTO) 0.7 % (0.0-2.0); EOSINOPHILS # (AUTO) 0.5 K/uL (0-0.4); EOSINOPHILS % (AUTO) 6.5 % (0.0-4.0); HEMATOCRIT 46.3 % (36-52); HEMOGLOBIN 15.7 g/dL (12.0-18.0); LYMPHOCYTES % (AUTO) 13.9 % (20.5-51.1); MEAN CORPUSCULAR HEMOGLOBIN 33 pg (27-31); MEAN CORPUSCULAR HGB CONC 34 g/dL (33-37); MEAN CORPUSCULAR VOLUME 97.8 fL (80-94); MONOCYTES # (AUTO) 0.7 K/uL (0.8-1.0); MONOCYTES % (AUTO) 9.2 % (1.7-9.3); NEUTROPHILS % (AUTO) 69.7 % (42.2-75.2); PLATELET COUNT (AUTO) 97 K/uL (140-450); RED BLOOD CELL COUNT(AUTO) 4.74 MIL/uL (4.20-6.10); RED CELL DISTRIBUTION WIDTH 14.5 % (11.6-13.7); WHITE BLOOD COUNT (AUTO) 7.1 K/uL (4.8-10.8)
[2023-11-09 05:47] LABS: ANION GAP 9.9 (8-16); CALCIUM 8.5 mg/dL (8.5-10.1); CARBON DIOXIDE 32.5 mmol/L (21-32); CHLORIDE 100 mmol/L (98-107); CREATININE 1.2 mg/dL (0.6-1.3); GLUCOSE 107 mg/dL (74-106); POTASSIUM 3.4 mmol/L (3.5-5.1); SODIUM SERUM 139 mmol/L (136-145); UREA NITROGEN, BLOOD 27 mg/dL (7-18)
[2023-11-09 06:49] LABS: PHOSPHORUS 3.6 mg/dL (2.5-4.9)
[2023-11-09] MEDS ORDERED: NON-FORMULARY ITEM (Multivitamin (Multiple Vitamins) 1 TAB) PO SCH (09:00)
[2023-11-09] MEDS: FUROSEMIDE 40 MG/4 ML VIAL IVP SCH (10:00)
[2023-11-09] MEDS: PANTOPRAZOLE 40 MG INJ VIAL IVP SCH (10:00)
[2023-11-09] MEDS: MULTIVITAMIN 1 TAB PO SCH (10:00)
[2023-11-09] MEDS: ASPIRIN 81 MG TAB.CHEW PO SCH (10:00)
[2023-11-09] MEDS: ATORVASTATIN 20 MG TAB PO SCH (10:00)
[2023-11-09] MEDS: POTASSIUM CHLORIDE 10 MEQ TABER PO PRN (17:03)
[2023-11-10] VITALS (9 sets, daily range): BP systolic 110–143; BP diastolic 80–95; PULSE 64–84; RESP 18–19; TEMP 97–98.2; O2SAT 96–99
[2023-11-10 05:27] LABS: BASOPHILS # (AUTO) 0.1 K/uL (0.00-0.22); BASOPHILS % (AUTO) 0.5 % (0.0-2.0); EOSINOPHILS # (AUTO) 0.4 K/uL (0-0.4); EOSINOPHILS % (AUTO) 4.3 % (0.0-4.0); HEMATOCRIT 47.1 % (36-52); HEMOGLOBIN 15.8 g/dL (12.0-18.0); LYMPHOCYTES # (AUTO) 0.8 K/uL (2.0-11.5); MEAN CORPUSCULAR HEMOGLOBIN 33 pg (27-31); MEAN CORPUSCULAR HGB CONC 34 g/dL (33-37); MEAN CORPUSCULAR VOLUME 98.3 fL (80-94); MONOCYTES # (AUTO) 0.9 K/uL (0.8-1.0); MONOCYTES % (AUTO) 8.6 % (1.7-9.3); NEUTROPHILS % (AUTO) 78.6 % (42.2-75.2); PLATELET COUNT (AUTO) 114 K/uL (140-450); RED BLOOD CELL COUNT(AUTO) 4.79 MIL/uL (4.20-6.10); RED CELL DISTRIBUTION WIDTH 14.4 % (11.6-13.7); WHITE BLOOD COUNT (AUTO) 10.2 K/uL (4.8-10.8)
[2023-11-10 06:05] LABS: PHOSPHORUS 3.3 mg/dL (2.5-4.9)
[2023-11-10 07:23] LABS: ANION GAP 12.8 (8-16); CALCIUM 8.7 mg/dL (8.5-10.1); CARBON DIOXIDE 30.3 mmol/L (21-32); CHLORIDE 102 mmol/L (98-107); CREATININE 1.2 mg/dL (0.6-1.3); GLUCOSE 107 mg/dL (74-106); POTASSIUM 4.1 mmol/L (3.5-5.1); SODIUM SERUM 141 mmol/L (136-145); UREA NITROGEN, BLOOD 27 mg/dL (7-18)
[2023-11-10 19:04] LABS: APPEARANCE,URINE CLEAR (CLEAR); BILIRUBIN,URINE NEGATIVE (NEGATIVE); BLOOD, URINE NEGATIVE (NEGATIVE); COLOR,URINE YELLOW (YELLOW); LEUKOCYTE ESTERASE ,URINE NEGATIVE (NEGATIVE); NITRITE, URINE NEGATIVE (NEGATIVE); PROTEIN,URINE TRACE (NEGATIVE); UGLUCOSE NEGATIVE (NEGATIVE); UROBILINOGEN,URINE 0.2 EU/dL (0.2 - 1)
[2023-11-11] VITALS: BP 143/94; PULSE 81; PULSE 93; RESP 18; TEMP 97.5; O2SAT 96
[2023-11-11 04:00] VITALS: BP 128/98; PULSE 90; PULSE 93; RESP 18; TEMP 97.3; O2SAT 98
[2023-11-11 05:42] LABS: BASOPHILS % (AUTO) 0.5 % (0.0-2.0); EOSINOPHILS # (AUTO) 0.4 K/uL (0-0.4); HEMATOCRIT 43.9 % (36-52); HEMOGLOBIN 15.1 g/dL (12.0-18.0); LYMPHOCYTES # (AUTO) 0.7 K/uL (2.0-11.5); LYMPHOCYTES % (AUTO) 7.6 % (20.5-51.1); MEAN CORPUSCULAR HEMOGLOBIN 34 pg (27-31); MEAN CORPUSCULAR HGB CONC 34 g/dL (33-37); MEAN CORPUSCULAR VOLUME 97.5 fL (80-94); MONOCYTES # (AUTO) 0.8 K/uL (0.8-1.0); MONOCYTES % (AUTO) 9.4 % (1.7-9.3); NEUTROPHILS # (AUTO) 7.1 K/uL (1.8-7.7); NEUTROPHILS % (AUTO) 78.5 % (42.2-75.2); PLATELET COUNT (AUTO) 110 K/uL (140-450); RED CELL DISTRIBUTION WIDTH 14.4 % (11.6-13.7)
[2023-11-11 05:44] LABS: ANION GAP 5.5 (8-16); CALCIUM 8.8 mg/dL (8.5-10.1); CARBON DIOXIDE 36.3 mmol/L (21-32); CHLORIDE 100 mmol/L (98-107); CREATININE 1.4 mg/dL (0.6-1.3); GLUCOSE 113 mg/dL (74-106); POTASSIUM 3.8 mmol/L (3.5-5.1); SODIUM SERUM 138 mmol/L (136-145); UREA NITROGEN, BLOOD 31 mg/dL (7-18)
[2023-11-11 05:49] LABS: MAGNESIUM 1.9 mg/dL (1.8-2.4); PHOSPHORUS 2.8 mg/dL (2.5-4.9)
[2023-11-11] MEDS ORDERED: ALBUTEROL SULFATE/IPRATROPIU 3 ML SOL IH PRN (07:55)
[2023-11-11 08:00] VITALS: BP 142/84; PULSE 94; RESP 18; TEMP 98.4; O2SAT 97; O2SAT 99
[2023-11-11 08:13] VITALS: O2SAT 96
[2023-11-11 12:00] VITALS: BP 121/77; PULSE 75; PULSE 78; RESP 20; TEMP 97.9; O2SAT 99
[2023-11-11] MEDS ORDERED: FURO40TA9 PO (14:18)
[2023-11-11 15:17] VITALS: BP 142/84; PULSE 94; RESP 18; TEMP 98.4
[2023-11-12] MEDS ORDERED: FUROSEMIDE 40 MG TAB PO SCH (09:00)
== END 2023-11-11 16:15 | DRG 291 ==
LOC: MED 10:44 → MTU 15:45
DX: I11.0 Hypertensive heart disease with heart failure (principal); I50.43 Acute on chronic combined systolic (congestive) and diastolic (congestive) heart failure; N17.0 Acute kidney failure with tubular necrosis; E86.0 Dehydration; E87.6 Hypokalemia; I25.10 Atherosclerotic heart disease of native coronary artery without angina pectoris; D69.6 Thrombocytopenia, unspecified; G47.00 Insomnia, unspecified; I48.91 Unspecified atrial fibrillation; K21.9 Gastro-esophageal reflux disease without esophagitis; Z79.82 Long term (current) use of aspirin; Z79.899 Other long term (current) drug therapy; Z86.73 Personal history of transient ischemic attack (TIA), and cerebral infarction without residual deficits
CPT/HCPCS: 36415; 71045; 80048; 81001; 81003; 82140; 82150; 83036; 83605; 83690; 83735; 83880; 84100; 84439; 84443; 84484; 85025; 85610; 85730; 87040; 87081; 93005; 96365; 96375; 97110; 97163-GP; 97530; 99291; J0692; J1940; J2470; Q0092